=== PATIENT | female | born 1995 | race Caucasian/White ===

== ENCOUNTER 2017-06-12 15:20 | Emergency (ER) | payer OTHER ==
[~2017-06-12] VITALS: Ht 170.2 cm; Wt 63.0 kg
[2017-06-12 15:31] VITALS: TEMP 37.3; Ht 170.2 cm; Wt 63.0 kg
[2017-06-12] MEDS ORDERED: EpINEphrine INJ 1MG/ML AMP 1 MG/ML AMP IM STA (16:10)
[2017-06-12] MEDS ORDERED: FAMOTIDINE IV INJ 40 MG in DEXTROSE 5% 100ML 100 ML IV STA (16:10)
--- NOTE | 2017-06-12 16:28 | DIAGNOSTIC IMAGING REPORT ---
SINGLE VIEW CHEST CLINICAL HISTORY: Atypical chest pain. Dyspnea. FINDINGS: An AP, portable, upright chest radiograph is obtained. No prior studies are available for comparison at the time of dictation. The examination is degraded by portable technique and patient rotation. The cardiomediastinal silhouette is unremarkable. The lungs and pleural spaces are clear. No pneumothorax is seen. The bony thorax is grossly intact. There is S-shaped thoracolumbar scoliosis. IMPRESSION: No active disease in the chest. Electronically signed by: Hero Higuera M.D. 06/12/2017 4:26 PM Dictated Date/Time: 06/12/2017 4:26 PM
[2017-06-12] MEDS ORDERED: NORETAB29 PO (16:51)
[2017-06-12] MEDS ORDERED: FLUO10CA48 PO (16:51)
[2017-06-12] MEDS ORDERED: hydrOXYzine HCL 25 MG TAB PO STA (17:08)
--- NOTE | 2017-06-12 17:08 | EMERGENCY ROOM VISIT NOTE ---
History Report prepared by Jannette: Dominik Yancey Under the Supervision of: Dr. Elsi Rey D.O. First contact with patient: 15:57 Chief Complaint: ALLERGIC REACTION Stated Complaint: RASH EVERYWHERE, BURNING EARS, SWOLLEN LIPS Nursing Triage Summary: Patient reports she took prednisone two days ago and awoke with a rash yesterday with swelling to lips. History of Present Illness The patient is a 21 year old female who presents to the Emergency Room with complaints of a worsening generalized allergic reaction beginning two days ago. She was started on Prednisone for a URI, and developed her symptoms following this. She has also taken Mucinex and Cold-eeze recently, but states that she has taken these before without complication. The patient notes that the worst of her rashes are on her legs. She has taken Benadryl for her symptoms, but has seen minimal relief. Her most recent Benadryl was about an hour ago. The patient states that she was started on the Prednisone for sore throat, cough and fevers. She had a negative flu and strep test at this time. She has no history of previous allergic reactions. The patient states that her URI-like symptoms have resolved. She states that she presents to the ED today because she has developed a sensation of closing in her throat. She denies any new hygienic products, medications, or foods. Source of History: patient Onset: Two days ago Position: other (generalized) Quality: other (allergic reaction) Timing: worsening Associated Symptoms: + fevers (resolved), + sorethroat (resolved), + cough ( resolved) Review of Systems See HPI for pertinent positives & negatives. A total of 10 systems reviewed and were otherwise negative. Past Medical & Surgical Medical Problems: (1) Anxiety Family History No pertinent family history stated. Social History Smoking Status: Never Smoker Occupation Status: [employer] student Current/Historical Medications Scheduled Fluoxetine (Prozac), Unknown Dose PO DAILY Norethindrone Acetate-Ethinyl (Lo Loestrin Fe), 1 TAB PO DAILY Allergies Coded Allergies: Guaifenesin (Verified Allergy, Severe, diffuse rash, itchiness, "chest tightness", 06/12/17) diffuse rash began 2 days after starting Prednisone 40mg PO daily, was also taking "Cold-Eeze" and Mucinex as well Prednisone (Verified Allergy, Severe, diffuse rash, itching, "chest tightness", 06/12/17) diffuse rash began 2 days after starting Prednisone 40mg PO daily, was also taking "Cold-Eeze" and Mucinex as well Zinc (Verified Allergy, Severe, diffuse rash, itchiness, and "chest tightness", 06/12/17) diffuse rash began 2 days after starting Prednisone 40mg PO daily, was also taking "Cold-Eeze" and Mucinex as well Physical Exam Vital Signs Date Time Temp Pulse Resp B/P (MAP) Pulse Ox O2 Delivery O2 Flow Rate FiO2 06/12/17 19:00 78 18 128/80 100 06/12/17 18:28 74 18 125/81 100 Room Air 06/12/17 16:44 73 06/12/17 16:40 70 19 06/12/17 16:35 133/86 06/12/17 15:31 37.3 83 20 144/103 99 Room Air 06/12/17 15:31 100 Room Air Physical Exam GENERAL: alert, well appearing, well nourished, no distress, non-toxic EYE EXAM: normal conjunctiva, PERRL and EOM's grossly intact OROPHARYNX: no exudate, no erythema, lips, buccal mucosa, and tongue normal and mucous membranes are moist. No mucocutaneous lesions. NECK: supple, no nuchal rigidity, no adenopathy, non-tender LUNGS: Clear to auscultation. Normal chest wall mechanics HEART: no murmurs, S1 normal and S2 normal ABDOMEN: abdomen soft, non-tender, normo-active bowel sounds, no masses, no rebound or guarding. BACK: Back is symmetrical on inspection and there is no deformity, no midline tenderness, no CVA tenderness. SKIN: no bruising. Generalized scattered areas of maculopapular rash. No vesicles. No petechia. No bullae. No sloughing. No areas with central clearing. Appears consistent with early urticaria vs contact dermatitis. UPPER EXTREMITIES: upper extremities are grossly normal. LOWER EXTREMITIES: No pitting edema. NEURO EXAM: Normal sensorium, cranial nerves II-XII grossly intact, normal speech, no gross weakness of arms, no gross weakness of legs. Medical Decision & Procedures ER Provider Diagnostic Interpretation: Radiology results have been interpreted by the radiologist and reviewed by me. SINGLE VIEW CHEST FINDINGS: An AP, portable, upright chest radiograph is obtained. No prior studies are available for comparison at the time of dictation. The examination is degraded by portable technique and patient rotation. The cardiomediastinal silhouette is unremarkable. The lungs and pleural spaces are clear. No pneumothorax is seen. The bony thorax is grossly intact. There is S-shaped thoracolumbar scoliosis. IMPRESSION: No active disease in the chest. Electronically signed by: Hero Higuera M.D. 06/12/2017 4:26 PM Medications Administered Medications (Trade) Dose Ordered Sig/Hollis Route Start Time Stop Time Status Last Admin Dose Admin Epinephrine HCl (EpINEphrine INJ 1MG/ML AMP/VIAL) 0.3 mg NOW STAT IM 06/12/17 16:10 06/12/17 16:12 DC 06/12/17 16:41 0.3 MG Famotidine 40 mg/ Dextrose 104 ml @ 200 mls/hr NOW STAT IV 06/12/17 16:10 06/12/17 16:41 DC 06/12/17 16:43 200 MLS/HR Hydroxyzine HCl (Vistaril Tab) 25 mg NOW STAT PO 06/12/17 17:08 06/12/17 17:09 DC 06/12/17 17:18 25 MG ECG Indication: other (allergic reaction) Rate (beats per minute): 67 Rhythm: normal sinus Findings: no acute ischemic change, other (Normal axis. Normal intervals. Baseline artifact noted. ) ED Course 1604: The patient was evaluated in room A4B. A complete history and physical exam was performed. 1610: Ordered Famotidine 40 mg/Dextrose 104 mL @ 200 mL/hr IV, Epinephrine HCl 0.3 IM. 1708: Patient states sense of chest tightness and shortness of breath is improved. However still states itchy rash. Ordered Vistaril Tab 25 mg PO. 1811: No improvement in itching. Discussed with her sx to watch/return for, f/ u with PCP and likely need for visit to munitions worker, she verbalized understanding and was agreeable with plan. The patient is ready for discharge. Medical Decision Differential diagnosis: Etiologies such as allergic reaction, anaphylaxis, urticaria, Ramírez-Dane syndrome, toxic epidermal necrolysis, erythema multiforme, cellulitis, as well as others were entertained. Patient improved here following administration of medications. Patient still with diffuse rash and complained of itching, however less prominent compared to initial exam. No evidence of fulminant anaphylaxis. Discussed with patient continue use of medications at home, and avoidance of any additional steroids and prednisone was added to her allergy list here. Discussed follow-up with her family doctor in possible need for evaluation by an munitions worker. Discussed avoidance of any other new personal hygiene products, foods, or other viral exposures until she is feeling better and her symptoms have resolved. Discussed symptoms to watch and return for, she verbalized understanding was agreeable with plan. Medication Reconcilliation Current Medication List: was personally reviewed by me Blood Pressure Screening Patient's blood pressure: Elevated blood pressure Blood pressure disposition: Elevated BP felt to be situational Impression Primary Impression: Allergic reaction Additional Impression: Urticaria Scribe Attestation The scribe's documentation has been prepared under my direction and personally reviewed by me in its entirety. I confirm that the note above accurately reflects all work, treatment, procedures, and medical decision making performed by me. Departure Information Dispostion Home / Self-Care Referrals No Doctor, Assigned (PCP) Patient Instructions My [facility] Additional Instructions Please continue taking Benadryl every 6 hours as you have been. Please add prednisone to your list of allergies with your doctor. Please avoid any other new products or foods until you're symptoms have completely resolved. You may also use Pepcid or famotidine [id number] every day until you're symptoms resolved as well, this will help with the histamine reaction also. If you have any worsening or spreading rash again, develop chest tightness or trouble breathing, develop vomiting, dizziness, feel as though you may black out or pass out, or you've any other new concerns, please return the emergency room. Problem Qualifiers Primary Impression: Allergic reaction Encounter type: initial encounter Qualified Codes: T78.40XA - Allergy, unspecified, initial encounter
[2017-06-12 19:00] VITALS: BP 128/80; PULSE 78; O2SAT 100
== END 2017-06-12 19:00 | disposition home or self-care (01) ==
LOC: C.EDB 15:22 → C.EDA 19:00
DX: L50.0 Allergic urticaria (principal); F41.9 Anxiety disorder, unspecified; Z79.899 Other long term (current) drug therapy